=== PATIENT | male | born 1965 | race Caucasian/White ===

== ENCOUNTER 2017-06-22 13:34 | Emergency (ER) | payer OTHER, SELFPAY ==
[2017-06-22 14:24] LABS: #Lymphocytes 1.4 thou/uL (1.20-3.40); #Monocytes 0.3 thou/uL (0.11-0.59); #Neutrophils 5.3 thou/uL (1.40-6.50); %Basophils 0.5 % (0.0-1.0); %Eosinophils 0.2 % (0.0-10.0); %Lymphocytes 19.4 % (21.0-51.0); %Monocytes 4.3 % (0.0-10.0); %Neutrophils 75.6 % (42.0-75.0); Hemoglobin 15.1 g/dL (14.0-18.0); Mean Corpuscular HGB CONC 32.3 g/dL (32.0-36.0); Mean Corpuscular Hemoglobin 30.5 pg (27.0-31.0); Mean Corpuscular Volume 94.3 fl (80.0-94.0); Platelet Count 294 thou/uL (130-400); RBC Distribution Width 12.8 % (11.5-14.5); Red Blood Cell (RBC) Count 4.95 mill/uL (4.70-6.10)
[2017-06-22 14:39] LABS: ALT (SGPT) 21 U/L (8-55); AST (SGOT) 24 U/L (5-34); Albumin 4.2 g/dL (3.5-5.0); Alkaline Phosphatase 56 U/L (40-150); Anion Gap 17 mmol/L (10-20); BUN (Urea Nitrogen) 9 mg/dL (8.4-25.7); Bilirubin, Total 0.2 mg/dL (0.2-1.2); Calc. Creatinine Clearance 0 mL/min (70-130); Calcium 8.7 mg/dL (7.8-10.44); Carbon Dioxide 23 mmol/L (22-29); Chloride 108 mmol/L (98-107); Estimated GFR-MDRD Greater than 90; Glucose 103 mg/dL (70-105); Potassium 3.9 mmol/L (3.5-5.1); Protein, Total 7.2 g/dL (6.0-8.3); Sodium 144 mmol/L (136-145)
[2017-06-22 14:56] LABS: Alcohol 408 mg/dL (Less than 10)
[2017-06-22 15:05] LABS: Bilirubin Negative (Negative); Blood, Urine Trace (Negative); Glucose, Urine (Dipstick) Negative (Negative); Leukocyte Negative (Negative); Nitrite Negative (Negative); Protein, Urine (Dipstick) 30 mg/dL (Neg-Trace); Specific Gravity, Urine 1.025 (1.005-1.030); Urobilinogen 0.2 mg/dL (0.2-1.0); pH, Urine 5.5 (5.0-9.0)
[2017-06-22 15:20] LABS: Amphetamine Not Detected (NotDetected); Barbiturates Screen Not Detected (NotDetected); Benzodiazepine Screen Not Detected (NotDetected); Clarity SL HAZY (Clear); Cocaine Metabolite Screen Not Detected (NotDetected); Medtox Control Line Valid? VALID (VALID); Methadone Not Detected (NotDetected); Methamphetamine Not Detected (NotDetected); Opiate Screen Not Detected (NotDetected); Oxycodone Screen Not Detected (NotDetected); Phencyclidine (PCP) Not Detected (NotDetected); THC/Cannabinoid Screen Not Detected (NotDetected); Tricyclic Screen Not Detected (NotDetected)
--- NOTE | 2017-06-22 15:21 | CT ---
HEAD CT WITHOUT CONTRAST: Date: 06/22/17 COMPARISON: None. HISTORY: Trauma, pain. TECHNIQUE: Serial axial CT imaging at 5 mm intervals from vertex through skull base without contrast. Coronal an d sagittal reformatted imaging obtained. FINDINGS: There is partial opacification of the ethmoid air cells bilaterally. There is mucosal thickening invo lving bilateral maxillary sinuses. There is no displaced calvarial fracture. No intracranial hemorrhage, midline shift, mass effect, or ventricular enlargement. IMPRESSION: No intracranial hemorrhage or displaced calvarial fracture seen. POS: KRISTY
[2017-06-22 15:23] LABS: Crystals/HPF 1+ AMORPH URATES HPF (Negative); RBC/HPF 0-3 HPF (0-3); Squamous Epithelial 0-3 HPF (0-3)
--- NOTE | 2017-06-22 15:26 | CT ---
CT OF THE CERVICAL SPINE WITHOUT CONTRAST: Date: 06/18/17 COMPARISON: None. HISTORY: Trauma, pain. TECHNIQUE: Serial axial CT imaging at 2.5 mm intervals from the skull base through the lung apices without contr ast. Coronal and sagittal reformatted imaging obtained. FINDINGS: Provided imaging is nondiagnostic through the C3 and C4 vertebral levels secondary to motion artifact . Imaged paranasal sinuses demonstrate polypoid mucosal thickening within bilateral maxillary alveola r recesses. Motion artifact limits detailed assessment through the skull base. The C1 ring is intact. The cranioc ervical junction appears intact. There is degenerative change at the atlantoaxial interspace. Motion artifact limits assessment of C3 and C4 vertebral bodies on axial imaging. There is disc space narrowing at C5-6 and C6-7 with anterior osteophyte formation and degenerative en d plate change, most prominent at C6-7. There is facet and uncovertebral osteophyte formation extendi ng into the neural foramina with bilateral neural foraminal stenosis. No prevertebral soft tissue abn ormality seen. IMPRESSION: No acute findings. However, motion artifact limits assessment of C3 and C4 vertebral bodies. When th e patient is able to cooperate for the examination, repeat CT examination of the cervical spine from the C2 level through the C5-6 level is advised for full assessment. POS: KRISTY
== END 2017-06-23 06:50 | disposition home or self-care (01) ==
LOC: NAV ERS 13:34
DX: F10.129 Alcohol abuse with intoxication, unspecified (principal); R41.82 Altered mental status, unspecified; I10 Essential (primary) hypertension; F17.210 Nicotine dependence, cigarettes, uncomplicated; G40.909 Epilepsy, unspecified, not intractable, without status epilepticus
CPT/HCPCS: 36415; 51701; 70450; 72125; 80053; 80306; 80307; 81003; 81015; 85025